=== PATIENT | male | born 1995 | race Two or more races ===

== ENCOUNTER 2023-01-11 12:50 | Emergency (ER) | payer OTHER ==
[~2023-01-11] VITALS: Ht 165.1 cm; Wt 90.7 kg
[2023-01-11] MEDS ORDERED: IV NS 0.9% 1,000 ML BAG IV ONE (13:00)
--- NOTE | 2023-01-11 13:01 | NUR ---
IV ACCESS ESTBALISHED. 18G RIGHT AC. BLOOD DRAWN AND SENT TO LAB.
--- NOTE | 2023-01-11 13:31 | NUR ---
CHEST X RAY TAKEN.
--- NOTE | 2023-01-11 13:31 | NUR ---
PT IN BED 12, A/O X4 TIRED AND FATIGUED 99% ON ROOM AIR NO DISTRESS NOTED. STATES HE WAS IN A CAR AND BEGAN TO FEEL CHEST PAIN WHERE AFTER HE LOST CONSCIOUSNESS AND WOKE UP CONFUSED. PT IN FOWLERS POSTION BED LOCKED SIDE RAILS UP.
--- NOTE | 2023-01-11 13:35 | NUR ---
BG 84
[2023-01-11 13:42] LABS: ALANINE AMINOTRANSFERASE 49 U/L (12-78); ALBUMIN 3.9 g/dL (3.4-5.0); ALCOHOL, BLOOD < 3 mg/dL (0-0); ALKALINE PHOSPHATASE 92 U/L (46-116); ASPARTATE AMINOTRANSFERASE 34 U/L (15-37); BILIRUBIN,DIRECT 0.1 mg/dL (0.0-0.2); BILIRUBIN,TOTAL 0.4 mg/dL (0.2-1.0); CALCIUM, SERUM 8.3 mg/dL (8.5-10.1); CARBON DIOXIDE 28 mmol/L (21-32); CHLORIDE 108 mmol/L (98-107); GLUCOSE 112 mg/dL (74-106); POTASSIUM 3.7 mmol/L (3.5-5.1); SODIUM SERUM 141 mmol/L (136-145); TOTAL PROTEIN, SERUM 7.5 g/dL (6.4-8.2); UREA NITROGEN, BLOOD 15 mg/dL (7-18)
[2023-01-11 14:11] LABS: ACETAMINOPHEN 0 ug/ml (10-30)
[2023-01-11 14:13] LABS: HEMATOCRIT 42 % (39-51); HEMOGLOBIN 14.4 g/dL (13.5-17.5); MEAN CORPUSCULAR HGB CONC 34 g/dl (31.0-36.0); MEAN CORPUSCULAR VOLUME 86 fL (80-96); PLATELET COUNT (AUTO) 190 K/uL (150-450); RED BLOOD CELL COUNT(AUTO) 4.86 MIL/uL (4.5-6.0); WHITE BLOOD COUNT (AUTO) 6.6 K/uL (4.3-11.0)
--- NOTE | 2023-01-11 14:23 | NUR ---
URINE COLLECTED AND SENT TO LAB.
[2023-01-11 14:42] LABS: BILIRUBIN,URINE Negative (NEGATIVE); COLOR,URINE YELLOW (YELLOW); LEUKOCYTE ESTERASE ,URINE Negative (NEGATIVE); NITRITE, URINE Negative (NEGATIVE); PH,URINE 5.5 (5.0-8.0); PROTEIN,URINE Negative (NEGATIVE); UGLUCOSE Negative (NEGATIVE); UROBILINOGEN,URINE 0.2 EU/dL (0.2)
[2023-01-11 15:33] VITALS: BP 119/76
[2023-01-11 16:38] LABS: WBC,URINE 0-2 /HPF (0-3)
[2023-01-11 16:39] LABS: BACTERIA,URINE None seen /HPF (None Seen); SQUAMOUS EPITHELIAL CELL,UR 0-2 /HPF (None Seen)
[2023-01-11 16:40] LABS: MUCUS,URINE Few /LPF (None Seen)
[2023-01-11 18:56] LABS: EOSINOPHILS % (MANUAL) 4 % (0-4); LYMPHOCYTES % (MANUAL) 36 % (16-48); MONOCYTES % (MANUAL) 3 % (0-11.0); NEUTROPHILS % (MANUAL) 57 (42-76)
== END 2023-01-11 15:34 | disposition home or self-care (01) ==
LOC: ER 12:52
DX: R55 Syncope and collapse (principal)
CPT/HCPCS: 99285; 96360; 93005; 71045; 85025; 80048; 80076; 85007; 81001; 36415; 82962; 80143; 80320; 80307; J7030; G0480